=== PATIENT | male | born 1975 | race Caucasian/White ===

== ENCOUNTER 2017-10-29 13:38 | Emergency (ER) | payer OTHER ==
[2017-10-29 15:56] VITALS: BP 109/63
--- NOTE | 2017-10-29 17:37 | UC ---
Complaint Male HPI - HPI Summary HPI Summary: 42 yo Wm h/o STI c/o lower pelvic/right testicular pain associated with intermittent episodes of urinary frequency and urgency and LBP since september. Denies penile d/c Had a round of Doxycycline in September along with an "IM" injection for gonorrhea and chlamydia. Not sexually active currently per pt. - History of Current Complaint Chief Complaint: UCGU Stated Complaint: PERSONAL Hx Obtained From: Patient Onset/Duration: Lasting Weeks Timing: Intermittent Pain Intensity: 2 Pain Scale Used: 0-10 Numeric Location: Groin Character: Sharp Aggravating Factor(s): Voiding Alleviating Factor(s): Nothing Associated Signs And Symptoms: Negative: Back Pain, Fever, Hematuria, Dysuria - Allergies/Home Medications Allergies/Adverse Reactions: Allergies Allergy/AdvReac Type Severity Reaction Status Date / Time MS Penicillins [Penicillins] Allergy Intermediate Rash Verified 01/28/16 16:03 PMH/Surg Hx/FS Hx/Imm Hx Previously Healthy: Yes GI/ History: Other - STI Other GI/ History: GC/Chlamydia - Surgical History Surgical History: None - Family History Known Family History: Positive: None - Social History Alcohol Use: Occasionally Substance Use Type: None Smoking Status (MU): Never Smoked Tobacco Review of Systems Constitutional: Negative Skin: Negative Eyes: Negative ENT: Negative Respiratory: Negative Cardiovascular: Negative Gastrointestinal: Negative Genitourinary: Frequency, Urgency Motor: Negative Neurovascular: Negative Musculoskeletal: Negative Neurological: Negative Psychological: Negative Is Patient Immunocompromised?: No All Other Systems Reviewed And Are Negative: Yes Physical Exam Triage Information Reviewed: Yes Vital Signs: Initial Vital Signs Temp 36.4 C 10/29/17 13:48 Pulse 72 10/29/17 13:48 Resp 15 10/29/17 13:48 BP 109/79 10/29/17 13:48 Pulse Ox 100 10/29/17 13:48 Complaint Male Course/Dx - Course Course Of Treatment: may be incomplete tx of UTI, vs chronic epididymitis but UA here in UC had pH of 7.5 with trace blood. strongly possible for unresolved or ongoing UTI and prostatits. Will tx with cipro 500 BID po x 14 days - Differential Dx/Diagnosis Differential Diagnosis/HQI/PQRI: Epididymitis, Prostatitis, Pyelonephritis, Urinary Tract Infection Provider Diagnoses: UTI Discharge - Discharge Plan Condition: Stable Disposition: HOME Prescriptions: Ciprofloxacin TAB* [Cipro 500 MG TAB*] 500 mg PO BID 14 Days #28 tab Patient Education Materials: Urinary Tract Infection in Men (ED) Referrals: No Primary Care Phys,NOPCP [Primary Care Provider] - Additional Instructions: follow up with urology on next appt
== END 2017-10-29 17:38 | disposition home or self-care (01) ==
LOC: UCEAST 13:38
DX: N39.0 Urinary tract infection, site not specified (principal)
CPT/HCPCS: 81003; 99212; G0463

== ENCOUNTER 2018-10-11 12:07 | Emergency (ER) | payer OTHER ==
[2018-10-11 12:43] VITALS: BP 107/77
[2018-10-11] MEDS ORDERED: Albuterol 2.5 MG/3 ML NEB.SOL* (0.083%) INH ONE (13:46)
--- NOTE | 2018-10-11 14:43 | UC ---
Respiratory Complaint HPI - HPI Summary HPI Summary: PT HAS HAD COUGH PRODUCTIVE OF WHITE SPUTUM, CHEST CONGESTION/TIGHTNESS AND FATIGUE FOR OVER A MONTH. WAS SEEN HERE 3 WEEKS AGO AND TX WITH ZPAK, PREDNISONE AND ALBUTEROL. STATES HE FELT A BIT BETTER BUT SX WORSENED AGAIN SHORTLY AFTER. HAS FITS OF COUGHING. NO FEVER. NO N/V/D. - History of Current Complaint Chief Complaint: UCRespiratory Stated Complaint: COUGH,WHEEZING Time Seen by Provider: 10/11/18 12:42 Hx Obtained From: Patient Onset/Duration: Gradual Onset, Lasting Weeks, Still Present Timing: Constant Severity Initially: Moderate Severity Currently: Moderate Pain Intensity: 0 Pain Scale Used: 0-10 Numeric Character: Cough: Productive Aggravating Factors: Nothing Alleviating Factors: Nothing Associated Signs And Symptoms: Positive: Dyspnea, Wheezing. Negative: Fever, Chills, Nasal Congestion - Allergies/Home Medications Allergies/Adverse Reactions: Allergies Allergy/AdvReac Type Severity Reaction Status Date / Time Penicillins Allergy Unknown Unknown Verified 10/11/18 12:43 Reaction Details PMH/Surg Hx/FS Hx/Imm Hx Respiratory History: Asthma - Surgical History Surgical History: None - Family History Known Family History: Positive: Cardiac Disease, Hypertension Family History: No FHx of strokes - Social History Alcohol Use: Weekly Substance Use Type: None Smoking Status (MU): Never Smoked Tobacco Type: Cigarettes Household Exposure Type: Cigarettes Review of Systems All Other Systems Reviewed And Are Negative: Yes Constitutional: Positive: Fatigue Respiratory: Positive: Shortness Of Breath, Cough Cardiovascular: Positive: Negative Gastrointestinal: Positive: Negative Physical Exam Triage Information Reviewed: Yes Appearance: Well-Appearing, No Pain Distress, Well-Nourished Vital Signs: Initial Vital Signs Temp 98.1 F 10/11/18 12:39 Pulse 77 10/11/18 12:39 Resp 18 10/11/18 12:39 BP 107/77 10/11/18 12:39 Pulse Ox 99 10/11/18 12:39 Vital Signs Reviewed: Yes Eyes: Positive: Conjunctiva Clear ENT: Positive: Hearing grossly normal, Pharynx normal, TMs normal Neck: Positive: Supple, Nontender, No Lymphadenopathy Respiratory: Positive: No respiratory distress, No accessory muscle use, Other: - OCCASIONAL COARSE BREATH SOUND. Negative: Crackles, Wheezing Cardiovascular Exam: Normal Abdomen Description: Positive: Soft Musculoskeletal: Positive: No Edema Neurological: Positive: Alert Psychological: Positive: Age Appropriate Behavior Skin: Negative: Rashes UC Diagnostic Evaluation - Laboratory O2 Sat by Pulse Oximetry: 99 - Radiology Radiology Interpretation Completed By: Radiologist Summary of Radiographic Findings: CXR UNREMARKABLE Respiratory Course/Dx - Course Course Of Treatment: FELT A LITTLE BETTER AFTER ALBUTEROL NEBULIZER. NO REAL INDICATION FOR ANOTHER COURSE OF ANTIBIOTICS. WILL GIVE HIM ANOTHER SHORT COURSE OF PREDNISONE AND REFILL ALBUTEROL INHALER. COUGH MEDICINE NEEDED. CHEST X-RAY UNREMARKABLE. SEEK FOLLOW-UP IF NOT IMPROVING EXPECTED. - Differential Dx/Diagnosis Provider Diagnosis: Acute bronchitis Discharge - Sign-Out/Discharge Documenting (check all that apply): Patient Departure All imaging exams completed and their final reports reviewed: Yes - Discharge Plan Condition: Stable Disposition: HOME Prescriptions: Albuterol HFA INHALER* [Ventolin HFA Inhaler*] 2 puff INH Q4H PRN #1 mdi PRN Reason: Shortness Of Breath Codeine Phosphate/Guaifenesin [Codeine-Guaifen 10-100 mg/5 ml] 5 - 10 ml PO Q6H PRN #150 ml MDD 40ML PRN Reason: Cough predniSONE TAB* [Deltasone TAB*] 50 mg PO DAILY #5 tab Patient Education Materials: Acute Bronchitis (ED) Referrals: No Primary Care Phys,NOPCP [Primary Care Provider] - Additional Instructions: CHEST X-RAY TODAY UNREMARKABLE. YOU FELT SLIGHTLY BETTER AFTER ALBUTEROL NEBULIZER. WILL REFILL YOUR INHALER TODAY. I WOULD RECOMMEND YOU USE IT WITH THE SPACER YOU HAVE HOME. WILL GIVE ANOTHER SHORT COURSE OF PREDNISONE AND COUGH MEDICINE. REST, HYDRATE, OTC MEDS NEEDED. NO INDICATION FOR FURTHER ANTIBIOTICS AT PRESENT. CALL THE NUMBER BELOW FOR ASSISTANCE IN ESTABLISHING WITH A PCP An additional resource available to assist in finding the appropriate physician for your health care needs is the [facility] ([facility]). You may contact them by calling [phone]. - Billing Disposition and Condition Condition: STABLE Disposition: Home
== END 2018-10-11 14:43 | disposition home or self-care (01) ==
LOC: UCEAST 12:07
DX: J20.9 Acute bronchitis, unspecified (principal); J45.909 Unspecified asthma, uncomplicated; Z88.0 Allergy status to penicillin; Z77.22 Contact with and (suspected) exposure to environmental tobacco smoke (acute) (chronic)
CPT/HCPCS: 71046; 99212; G0463

== ENCOUNTER 2019-11-23 00:27 | Emergency (ER) | payer OTHER ==
--- NOTE | 2019-11-23 01:43 | ED ---
Throat Pain/Nasal Congestion - HPI Summary HPI Summary: 44 year old M arriving via private car to [facility] complains of left eye pain and irritation after being scratched by his dog Mon 10/22. Patient was asymptomatic until yesterday 11/21 when he noticed irritation involving the upper left lid and a bump in the mid lid area of the left eye. No visual changes, blurred vision. The patient rates the pain 2/10 in severity. Symptoms aggravated by nothing. Symptoms alleviated by nothing. Medications reviewed. Allergies noted. Home Medications Medication Instructions Recorded Confirmed Type Amphetamine MIXED SALT TAB* 10 - 20 mg PO DAILY 01/28/16 10/11/18 History [Adderall TAB*] Eszopiclone TAB(NF) [Lunesta 1 tab PO BEDTIME PRN 01/28/16 10/11/18 History TAB(NF)] LORazepam TAB(*) [Ativan 0.5 MG 0.5 - 1 mg PO BID 03/03/18 10/11/18 History TAB (*)] LORazepam TAB(*) [Ativan 0.5 MG 0.5 mg PO BEDTIME PRN 5 Days #5 03/03/18 Rx TAB (*)] tab MDD 2 buPROPion TAB* [Wellbutrin TAB*] 100 mg PO DAILY 03/03/18 10/11/18 History Albuterol HFA INHALER* [Ventolin 2 puff INH Q4H PRN #1 mdi 10/11/18 Rx HFA Inhaler*] Codeine Phosphate/Guaifenesin 5 - 10 ml PO Q6H PRN #150 ml MDD 10/11/18 Rx [Codeine-Guaifen 10-100 mg/5 ml] 40ML predniSONE 50 mg TAB [Deltasone 50 50 mg PO DAILY #5 tab 10/11/18 Rx mg TAB] - History of Current Complaint Chief Complaint: EDEyeProblem Time Seen by Provider: 11/23/19 01:31 Hx Obtained From: Patient Onset/Duration: Lasting Days - 3, Still Present Severity: Mild - Allergies/Home Medications Allergies/Adverse Reactions: Allergies Allergy/AdvReac Type Severity Reaction Status Date / Time Penicillins Allergy Unknown Unknown Verified 11/23/19 00:32 Reaction Details Home Medications: Home Medications Amphetamine MIXED SALT TAB* [Adderall TAB*] 10 - 20 mg PO DAILY 01/28/16 [ History Confirmed 10/11/18] Eszopiclone TAB(NF) [Lunesta TAB(NF)] 1 tab PO BEDTIME PRN 01/28/16 [History Confirmed 10/11/18] LORazepam TAB(*) [Ativan 0.5 MG TAB (*)] 0.5 - 1 mg PO BID 03/03/18 [History Confirmed 10/11/18] LORazepam TAB(*) [Ativan 0.5 MG TAB (*)] 0.5 mg PO BEDTIME PRN 5 Days #5 tab MDD 2 03/03/18 [Rx Confirmed 10/11/18] buPROPion TAB* [Wellbutrin TAB*] 100 mg PO DAILY 03/03/18 [History Confirmed ] Albuterol HFA INHALER* [Ventolin HFA Inhaler*] 2 puff INH Q4H PRN #1 mdi [Rx] Codeine Phosphate/Guaifenesin [Codeine-Guaifen 10-100 mg/5 ml] 5 - 10 ml PO Q6H PRN #150 ml MDD 40ML 10/11/18 [Rx] predniSONE 50 mg TAB [Deltasone 50 mg TAB] 50 mg PO DAILY #5 tab 10/11/18 [Rx] PMH/Surg Hx/FS Hx/Imm Hx Endocrine/Hematology History: Denies: Hx Diabetes, Hx Thyroid Disease Cardiovascular History: Denies: Hx Hypertension Respiratory History: Reports: Hx Asthma Denies: Hx Chronic Obstructive Pulmonary Disease (COPD) GI History: Denies: Hx Ulcer - Surgical History Surgical History: None Infectious Disease History: No Infectious Disease History: Denies: Hx Clostridium Difficile, Hx Hepatitis, Hx Human Immunodeficiency Virus (HIV), Hx of Known/Suspected MRSA, Hx Shingles, Hx Tuberculosis, Traveled Outside the [place] in Last 30 Days - Family History Known Family History: Positive: Cardiac Disease, Hypertension Family History: No FHx of strokes - Social History Alcohol Use: Weekly Substance Use Type: Reports: None Hx Tobacco Use: Yes Smoking Status (MU): Former Smoker Type: Cigarettes Review of Systems Negative: Fever Eyes: Negative - visual changes Positive: Other - left eye pain. Negative: Blurred Vision All Other Systems Reviewed And Are Negative: Yes Physical Exam - Summary Physical Exam Summary: Appearance: Well-appearing, Well-nourished, lying in bed comfortable Skin: Warm, dry, no obvious rash Eyes: sclera anicteric, no conjunctival pallor; left eye globe itself has no conjunctival scratch, visual acuity is normal to gross confrontation; extraocular movements are in tact, he has a lump on the mid upper lid of the left eye HENT: mucous membranes moist Neck: deferred Respiratory: No signs of respiratory distress Cardiovascular: Appears well perfused, pulses are nml Abdomen: deferred Musculoskeletal: Moving all 4 extremities without obvious discomfort Neurological: Awake and alert, mentation is normal, speech is fluent and appropriate Psychiatric: affect is normal, does not appear anxious or depressed Triage Information Reviewed: Yes Vital Signs On Initial Exam: Initial Vitals Temp Pulse Resp BP Pulse Ox 98.1 F 71 14 124/83 95 11/23/19 00:28 11/23/19 00:28 11/23/19 00:28 11/23/19 00:28 11/23/19 00:28 Vital Signs Reviewed: Yes Procedures - Sedation Patient Received Moderate/Deep Sedation with Procedure: No Diagnostics - Vital Signs Vital Signs Temp Pulse Resp BP Pulse Ox 11/23/19 00:28 98.1 F 71 14 124/83 95 - Laboratory Lab Statement: Any lab studies that have been ordered have been reviewed, and results considered in the medical decision making process. EENT Course/Dx - Course Course Of Treatment: 44 y/o M presents with left eye pain and irritation after being scratched by his dog 3 days ago. Patient was asymptomatic until yesterday 11/21 when he noticed irritation involving the upper left lid and a bump in the mid lid area of the left eye. Patient was given sulfacetamide eye drops. Patient will be discharged home with follow up from his eye doctor if not improved. He was advised to use eye drops and warm compresses. Patient was instructed to return to Emergency Department for new or worsening symptoms. Patient understands and is agreeable to this plan. - Diagnoses Provider Diagnoses: Hordeolum of left eye Discharge ED - Sign-Out/Discharge Documenting (check all that apply): Patient Departure - Discharge Plan Condition: Good Disposition: HOME Patient Education Materials: Gurwinder (ED) Referrals: No Primary Care Phys,NOPCP [Primary Care Provider] - Additional Instructions: Use the eye drops every 4 hrs, and warm compresses for 10-15 minutes 4 times daily. It may take several days to a week to go away, so followup with your eye doctor next week if not improving. - Billing Disposition and Condition Condition: GOOD Disposition: Home - Attestation Statements Document Initiated by Keli: Yes Documenting Scribe: Sandrita Mcgarry Provider For Whom Keli is Documenting (Include Credential): Duy Lincoln MD Scribe Attestation: ISandrita, scribed for Duy Lincoln MD on 11/24/19 at 0231. Scribe Documentation Reviewed: Yes Provider Attestation: The documentation as recorded by the [email or web address] accurately reflects the service I personally performed and the decisions made by me, Duy Lincoln MD Status of Scribe Document: Viewed
[2019-11-23] MEDS ORDERED: Sulfacetamide 10 % OPTH.SOL LEFT EYE SCH (02:00)
[2019-11-23 02:13] VITALS: BP 0/0
== END 2019-11-23 02:11 | disposition home or self-care (01) ==
LOC: ED 00:27
DX: H00.016 Hordeolum externum left eye, unspecified eyelid (principal); H57.12 Ocular pain, left eye; Z88.0 Allergy status to penicillin; J45.909 Unspecified asthma, uncomplicated; Z87.891 Personal history of nicotine dependence
CPT/HCPCS: 96374; 99282; A9270-GY